=== PATIENT | female | born 1990 | race Caucasian/White ===

== ENCOUNTER 2016-10-09 21:01 | Emergency (ER) | payer OTHER | END 2016-10-09 23:30 | disposition home or self-care (01) | LOC: ER 21:01 | DX: O99.611 Diseases of the digestive system complicating pregnancy, first trimester (principal); K59.00 Constipation, unspecified; O99.341 Other mental disorders complicating pregnancy, first trimester; F41.0 Panic disorder [episodic paroxysmal anxiety]; O99.331 Smoking (tobacco) complicating pregnancy, first trimester; F17.210 Nicotine dependence, cigarettes, uncomplicated; Z3A.08 8 weeks gestation of pregnancy ==

== ENCOUNTER 2016-11-04 18:08 | Emergency (ER) | payer OTHER | END 2016-11-04 20:23 | disposition home or self-care (01) | LOC: ER 18:08 | DX: O21.9 Vomiting of pregnancy, unspecified (principal); F41.9 Anxiety disorder, unspecified; F17.200 Nicotine dependence, unspecified, uncomplicated; Z3A.11 11 weeks gestation of pregnancy | CPT/HCPCS: 36415; 96360 ==